=== PATIENT | male | born 1985 | race Caucasian/White ===

== ENCOUNTER 2018-03-16 14:21 | Emergency (ER) | payer BC, OTHER ==
--- NOTE | 2018-03-16 15:20 | UC ---
Skin Complaint HPI - HPI Summary HPI Summary: 32 y/o male with no PMH, no meds who presents with rash x 2-3 days on L upper arm, + draining, + itchy, no pain, no fever, chills. no prior rashes. - History of Current Complaint Chief Complaint: UCRash Time Seen by Provider: 03/16/18 14:56 Stated Complaint: RASH Hx Obtained From: Patient Onset/Duration: Sudden Onset, Lasting Days Timing: Constant Onset Severity: Mild Current Severity: Mild Pain Intensity: 0 Pain Scale Used: 0-10 Numeric Location: Discrete - Allergy/Home Medications Allergies/Adverse Reactions: Allergies Allergy/AdvReac Type Severity Reaction Status Date / Time amoxicillin Allergy Intermediate Hives Verified 03/16/18 14:59 cefaclor [From Ceclor] Allergy Intermediate Hives Verified 03/16/18 14:59 ciprofloxacin [From Cipro] Allergy Intermediate Hives Verified 03/16/18 14:59 Review of Systems Constitutional: Negative Skin: Rash Is Patient Immunocompromised?: No All Other Systems Reviewed And Are Negative: Yes PMH/Surg Hx/FS Hx/Imm Hx Previously Healthy: Yes - Surgical History Surgical History: Yes Surgery Procedure, Year, and Place: navicular removed right foot. bone spur left heel - Social History Alcohol Use: Occasionally Substance Use Type: None Smoking Status (MU): Never Smoked Tobacco Physical Exam Triage Information Reviewed: Yes Appearance: Well-Appearing, No Pain Distress, Well-Nourished Vital Signs: Initial Vital Signs Temp 98.4 F 03/16/18 14:56 Pulse 56 03/16/18 14:56 Resp 18 03/16/18 14:56 BP 125/79 03/16/18 14:56 Pulse Ox 100 03/16/18 14:56 Vital Signs Reviewed: Yes Skin: Positive: rashes, Other - erythematous base with vesicular group rash over inner mid upper arm. no bleeding. Course/Dx - Course Course Of Treatment: prednisone with antibiotic ointment. FOllow up if no improvement within 2 days - Diagnoses Provider Diagnoses: dermatitis Discharge - Sign-Out/Discharge Documenting (check all that apply): Patient Departure All imaging exams completed and their final reports reviewed: No Studies - Discharge Plan Condition: Good Disposition: HOME Prescriptions: Neomycin/Polym/Bacit TOP OINT* [Neosporin TOP OINT TUBE*] 1 applic TOPICAL BID # 1 applic predniSONE TAB* [Deltasone 20 MG TAB*] 2 tab PO DAILY 2 Days #4 tab Triamcinolone 0.1% OINT(NF) [Kenalog 0.1% OINT(NF)] 1 applic .SEE ORDER DAILY WITH MEAL #1 applic Patient Education Materials: Contact Dermatitis (ED) Referrals: No Primary Care Phys,NOPCP [Primary Care Provider] - Additional Instructions: - start with topical steroid and antibiotic ointment - If no relief in 2 days, STOP topical steroid and do oral steroid and antibiotic ointment - REturn if no benefit in 3 days for follow up with PCP - Billing Disposition and Condition Condition: GOOD Disposition: Home - Attestation Statements Provider Attestation: I was available for consult. This patient was seen by the THERESA. The patient was not presented to, seen by, or examined by me. -Henrietta
== END 2018-03-16 15:54 | disposition home or self-care (01) ==
LOC: UCEAST 14:21
DX: L30.9 Dermatitis, unspecified (principal); Z88.1 Allergy status to other antibiotic agents; Z88.0 Allergy status to penicillin
CPT/HCPCS: 99202; G0463

== ENCOUNTER 2019-01-09 10:57 | Emergency (ER) | payer OTHER ==
[2019-01-09] MEDS ORDERED: Tetan/Diph/Pertus SYR(Tdap)* 0.5 ML SYR(BOOSTRIX) use SYR IM ONE (11:52)
--- NOTE | 2019-01-09 11:53 | UC ---
Skin Complaint HPI - HPI Summary HPI Summary: 33 yo male presents with LEFT great toe wound. He tells me that 2 days ago he was canoeing and a stepped on a rock. The rock cut the bottom of his left great toe. He bandaged the area, but has not been able to have it evaluated until today. He is unsure the date of his last tetanus. Denies fever or chills. - History of Current Complaint Chief Complaint: UCLaceration Time Seen by Provider: 01/09/19 11:53 Stated Complaint: TOE LAC Hx Obtained From: Patient Onset/Duration: Sudden Onset Onset Severity: Moderate Current Severity: Mild Pain Intensity: 4 Pain Scale Used: 0-10 Numeric - Allergy/Home Medications Allergies/Adverse Reactions: Allergies Allergy/AdvReac Type Severity Reaction Status Date / Time amoxicillin Allergy Intermediate Hives Verified 01/09/19 11:52 cefaclor [From Ceclor] Allergy Intermediate Hives Verified 01/09/19 11:52 ciprofloxacin [From Cipro] Allergy Intermediate Hives Verified 01/09/19 11:52 Home Medications: Home Medications Ibuprofen 400 mg PO 01/09/19 [History] PMH/Surg Hx/FS Hx/Imm Hx - Additional Past Medical History Additional PMH: None - Surgical History Surgical History: Yes Surgery Procedure, Year, and Place: navicular removed right foot. bone spur left heel - Family History Known Family History: Positive: Non-Contributory - Social History Lives: With Family Alcohol Use: Daily Substance Use Type: None Smoking Status (MU): Never Smoked Tobacco Review of Systems All Other Systems Reviewed And Are Negative: Yes Constitutional: Positive: Negative Skin: Positive: Other - Left great toe wound Respiratory: Positive: Negative Cardiovascular: Positive: Negative Neurovascular: Positive: Negative Musculoskeletal: Positive: Negative Neurological: Positive: Negative Psychological: Positive: Negative Physical Exam - Summary Physical Exam Summary: GENERAL: NAD. WDWN. No pain distress. SKIN: LEFT GREAT TOE: Plantar aspect with 8mm flap-like laceration partial thickness with dried blood. Mild TTP. No erythema, drainage, or streaking. CHEST: No accessory muscle use. Breathing comfortably and in no distress. CV: Pulses intact. Cap refill <2seconds MSK: FROM left great toe NEURO: Alert. PSYCH: Age appropriate behavior. Triage Information Reviewed: Yes Vital Signs: Initial Vital Signs Temp 99.0 F 01/09/19 11:48 Pulse 69 01/09/19 11:48 Resp 18 01/09/19 11:48 BP 131/85 01/09/19 11:48 Pulse Ox 100 01/09/19 11:48 Vital Signs Reviewed: Yes Course/Dx - Course Course Of Treatment: Wound was irrigated with NS. Bandaged with telfa and triple anbx ointment. tdap updated today Will place him on keflex prophylactically for open dirty wound. - Diagnoses Provider Diagnosis: Open toe wound Discharge - Sign-Out/Discharge Documenting (check all that apply): Patient Departure All imaging exams completed and their final reports reviewed: No Studies - Discharge Plan Condition: Stable Disposition: HOME Prescriptions: DOXYcycline CAP(*) [DOXYcycline 100MG CAP(*)] 100 mg PO BID #14 cap Patient Education Materials: Wound Infection (ED) Referrals: No Primary Care Phys,NOPCP [Primary Care Provider] - Additional Instructions: If you develop a fever, shortness of breath, chest pain, new or worsening symptoms - please call your PCP or go to the ED immediately. Your tetanus shot was updated today. Please change the bandaged daily until the site is well healed - Billing Disposition and Condition Condition: STABLE Disposition: Home
== END 2019-01-09 12:29 | disposition home or self-care (01) ==
LOC: UCEAST 10:57
DX: S91.112A Laceration without foreign body of left great toe without damage to nail, initial encounter (principal); W26.8XXA Contact with other sharp object(s), not elsewhere classified, initial encounter; Y92.828 Other wilderness area as the place of occurrence of the external cause
CPT/HCPCS: 90471; 90715; 99213; G0463

== ENCOUNTER 2019-01-13 09:58 | Emergency (ER) | payer OTHER ==
--- NOTE | 2019-01-13 10:30 | UC ---
Skin Complaint HPI - HPI Summary HPI Summary: bilat leg itching after being exposed to poison breanna. others in his group have the same after camping. using calomine w/ little improvement. denies fever, n/ v. started approx 1 wk ago - History of Current Complaint Chief Complaint: UCRash Time Seen by Provider: 01/13/19 10:28 Stated Complaint: RASH Hx Obtained From: Patient Pain Intensity: 0 - Allergy/Home Medications Allergies/Adverse Reactions: Allergies Allergy/AdvReac Type Severity Reaction Status Date / Time amoxicillin Allergy Intermediate Hives Verified 01/13/19 10:13 cefaclor [From Ceclor] Allergy Intermediate Hives Verified 01/13/19 10:13 ciprofloxacin [From Cipro] Allergy Intermediate Hives Verified 01/13/19 10:13 PMH/Surg Hx/FS Hx/Imm Hx - Additional Past Medical History Additional PMH: no chronic issues. Previously Healthy: Yes - Surgical History Surgical History: Yes Surgery Procedure, Year, and Place: navicular removed right foot. bone spur left heel - Family History Known Family History: Positive: Non-Contributory - Social History Alcohol Use: Daily Substance Use Type: None Smoking Status (MU): Never Smoked Tobacco Review of Systems All Other Systems Reviewed And Are Negative: Yes Constitutional: Negative: Fever, Chills Skin: Positive: Rash Respiratory: Positive: Negative Cardiovascular: Positive: Negative Musculoskeletal: Negative: Myalgia Physical Exam Triage Information Reviewed: Yes Appearance: Well-Appearing Vital Signs: Initial Vital Signs Temp 97.7 F 01/13/19 10:09 Pulse 74 01/13/19 10:09 Resp 18 01/13/19 10:09 BP 129/83 01/13/19 10:09 Pulse Ox 100 01/13/19 10:09 Vital Signs Reviewed: Yes Respiratory Exam: Normal Cardiovascular Exam: Normal Neurological: Positive: Alert Skin: Positive: Rashes - vesicles/blisters on LE from knees down. no open areas. pruritic. Course/Dx - Course Course Of Treatment: Poison breanna dermatitis on LE bilat. no open areas. vitals are good. will give medrol dose pack. of note he is on antibx for a previous skin infxn. we disc ways to manage continued poison breanna exposure. - Differential Diagnoses - Skin Complaint Differential Diagnoses: Poison Bre[place], Poison [place], Other - Diagnoses Provider Diagnosis: Poison breanna dermatitis Discharge - Sign-Out/Discharge Documenting (check all that apply): Patient Departure All imaging exams completed and their final reports reviewed: No Studies - Discharge Plan Condition: Good Disposition: HOME Prescriptions: methylPREDNISolone [Medrol Dosepak 4 MG*] 0 mg PO .SEE LISSETTE INSTRUCTION #1 packet Patient Education Materials: Poison [place] (ED) Referrals: No Primary Care Phys,NOPCP [Primary Care Provider] - Additional Instructions: if worsening please follow up with pcp - Billing Disposition and Condition Condition: GOOD Disposition: Home
== END 2019-01-13 10:53 | disposition home or self-care (01) ==
LOC: UCEAST 09:58
DX: L23.7 Allergic contact dermatitis due to plants, except food (principal)
CPT/HCPCS: 99212; G0463